=== PATIENT | male | born 1940 | race Caucasian/White ===

== ENCOUNTER 2016-07-24 10:21 | Observation (INO) | payer OTHER ==
[~2016-07-24] VITALS: Ht 185.4 cm; Wt 133.5 kg
--- NOTE | 2016-07-24 12:33 | ED ORDER SUMMARY ---
..... Patient: GUDELIA CHAN OrderSheet [facility] VisitID: [id number] [address] [place] [address] 75y, M Registration Date/Time: 07/24/2016 ORDER SHEET Weight: 128.3 kg Allergies: Aspirin GENERAL ORDERS: US Venous Bilat Urgent (10:50 07/24/2016 Karma Holder) (Ack 10:57 Merrill) (11:29 GMarshall R.N.) CBC w Diff Urgent (10:51 07/24/2016 Karma Holder) (Ack 10:57 Merrill) (11:29 GMarshall R.N.) CMP Urgent (10:51 07/24/2016 Karma Holder) (Ack 10:57 Merrill) (11:29 GMarshall R.N.) PT with INR Urgent (10:51 07/24/2016 Karma Holder) (Ack 10:57 Merrill) (11:29 GMarshall R.N.) Pulse oximeter (10:51 07/24/2016 Karma Holder) (11:29 GMarshall R.N.) MEDICATION ORDERS: Lovenox Subcut 120 mg (HIGH ALERT MEDICATION, NOW) (12:54 07/24/2016 Karma Holder) (12:56 GMarshall R.N.) IV FLUIDS: IV Saline Lock (10:51 07/24/2016 Karma Holder) (Ack 11:06 GMarshall R.N.) (11:30 GMarshall R.N.) Morphine IV 4 mg (HIGH ALERT MEDICATION, NOW) (11:40 07/24/2016 Karma Holder) (11:59 GMarshall R.N.) (Cancelled: Patient [id number] GMarshall R.N.) ORDER SHEET NOTES: [Electronically signed by Michael Joshua R.N. (13:45 07/24/2016)] [Electronically signed by Catracho Puentes Dr. (15:36 07/24/2016)] [Electronically locked/signed by Michael Joshua R.N. (13:45 07/24/2016)]
--- NOTE | 2016-07-24 12:33 | ED NURSING NOTES ---
Clinical Report - Nurses [place] [facility] [address] [place] [address] 07/24/2016 10:21 Patient: GUDELIA CHAN TRIAGE Triage time 10:35. Acuity: LEVEL 3. Chief Complaint: LEFT LOWER EXTREMITY SWELLING and REDNESS. Location of symptoms- (Hx of DVT). Alert. No acute distress. --10:45 Michael Joshua R.N. 10:35 07/24/16. BP: 107/86. HR: 81. RR: 20. O2 saturation: 98%. Temp: 98.5 F. Pain level now 07/22. --10:45 Michael Joshua R.N. Weight: 128.3 kg. Height/Length: 73 inches. BMI: 37.3. --10:45 Michael Joshua R.N. Medications Enalapril Maleate Oral. --10:40 Michael Joshua R.N. Etodolac Oral. Hydrochlorothiazide Oral. MetFORMIN HCl Oral. --10:40 Michael Joshua R.N. Atorvastatin Calcium Oral. Ranitidine HCl Oral. --10:41 Michael Joshua R.N. Alrex Ophthalmic. Combigan Ophthalmic. --10:41 Michael Joshua R.N. Allergies Aspirin. --10:40 Michael Joshua R.N. History Arrived by private vehicle. Historian: patient. Accompanied by family. No injury occurred. This occurred (A few days ago). He has had swelling and redness. Treatment TELESALES REPRESENTATIVE: None. NUTRITIONAL RISK ASSESSMENT: The nutritional risk assessment revealed no deficiencies. FUNCTIONAL ASSESSMENT: Functional assessment: no impairments noted. LEARNING NEEDS ASSESSMENT: The learning needs assessment revealed no barriers. SKIN INTEGRITY ASSESSMENT: Skin integrity risk assessment completed. No skin integrity risk identified. --10:45 Michael Joshua R.N. PROBLEMS: Myofascial Strain. Abnormal Test. Pedal Edema. DVT - Deep Venous Thrombosis. --10:44 Michael Joshua R.N. Interventions ID band on patient. --10:45 Michael Joshua R.N. PHYSICAL ASSESSMENT GENERAL / NEURO / PSYCH: Oriented X 4. Alert. Appears in no acute distress. SKIN: Skin intact. Skin is warm and dry. --10:46 Michael Joshua R.N. NURSING PROGRESS NOTES Patient gowned. Call light placed in reach. Bed placed in lowest position. --10:46 Michael Joshua R.N. 11:25 07/24/2016 Site #1 started via IV in the right forearm with an 20g angiocath, with aseptic technique and good blood return; one attempt. Blood drawn: rainbow set. Labeled in the presence of the patient and sent to the lab. Saline lock flushed with 10 mL saline. --11:30 Michael Joshua R.N. 11:59 07/24/2016 Morphine IVP 4 mg given over 1 minute(s) via site #1. --11:59 Michael Joshua R.N. 12:56 07/24/2016 Lovenox (Enoxaparin Sodium) Subcutaneous 120 mg given. Given in the right upper arm. --12:56 Michael Joshua R.N. 12:00. ( Welfare check on patient. No needs at this time). --13:29 Michael Joshua R.N. 12:00. ( Patient refused pain medicine that was ordered, states is not having any pain at this time). --13:32 iMchael Joshua R.N. 13:00. ( Dr Mendenhall at bedside). --13:33 Michael Joshua R.N. 13:34 07/24/16. BP: 120/73. HR: 74. RR: 20. O2 saturation: 97%. Temp: 98.5 F. Pain level now 0/10. --13:34 Michael Joshua R.N. DISPOSITION / DISCHARGE Admitted. Transported via stretcher. Patient's personal items include, Walker. --13:44 Michael Joshua R.N. 13:43 07/24/16. BP: 120/73. HR: 73. RR: 20. O2 saturation: 97%. Temp: 97.5 F. Pain level now 0/10. --13:44 Michael Joshua R.N. ( Report to Didi). --13:44 Michael Joshua R.N. Locked/Released at 07/24/2016 13:45 by Michael Joshua R.N.
--- NOTE | 2016-07-24 12:33 | ED ORDER SUMMARY ---
..... Patient: GUDELIA CHAN OrderSheet [facility] VisitID: [id number] [address] [place] [address] 75y, M Registration Date/Time: 07/24/2016 ORDER SHEET Weight: 128.3 kg Allergies: Aspirin GENERAL ORDERS: US Venous Bilat Urgent (10:50 07/24/2016 Karma Holder) (Ack 10:57 Merrill) (11:29 GMarshall R.N.) CBC w Diff Urgent (10:51 07/24/2016 Karma Holder) (Ack 10:57 Merrill) (11:29 GMarshall R.N.) CMP Urgent (10:51 07/24/2016 Karma Holder) (Ack 10:57 Merrill) (11:29 GMarshall R.N.) PT with INR Urgent (10:51 07/24/2016 Karma Holder) (Ack 10:57 Merrill) (11:29 GMarshall R.N.) Pulse oximeter (10:51 07/24/2016 Karma Holder) (11:29 GMarshall R.N.) MEDICATION ORDERS: Lovenox Subcut 120 mg (HIGH ALERT MEDICATION, NOW) (12:54 07/24/2016 Karma Holder) (12:56 GMarshall R.N.) IV FLUIDS: IV Saline Lock (10:51 07/24/2016 Karma Holder) (Ack 11:06 GMarshall R.N.) (11:30 GMarshall R.N.) Morphine IV 4 mg (HIGH ALERT MEDICATION, NOW) (11:40 07/24/2016 Karma Holder) (11:59 GMarshall R.N.) (Cancelled: Patient [id number] GMarshall R.N.) ORDER SHEET NOTES: [Electronically signed by Michael Joshua R.N. (13:45 07/24/2016)] [Electronically signed by Catracho Puentes Dr. (15:36 07/24/2016)] [Electronically locked/signed by Michael Joshua R.N. (13:45 07/24/2016)]
--- NOTE | 2016-07-24 12:33 | ED CLINICAL REPORT ---
Clinical Report - Physicians/Mid Levels [facility] [address] [place] [address] 07/24/2016 10:21 Patient: GUDELIA CHAN Arrived- By private vehicle. Historian- patient. HISTORY OF PRESENT ILLNESS Chief Complaint: LOWER EXTREMITY SWELLING. This started past several days and is still present and worsening. It was gradual in onset and has been constant but is not gone now. Severity is described as being moderate. The quality is noted to be similar to prior episodes. No radiation. Modifying factors- worsened by movement. Symptoms located in the area of the left thigh, left knee, left leg, left foot and left ankle. The patient has had swelling, but not had redness. No bladder dysfunction, bowel dysfunction, sensory loss or motor loss. 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 Reports that he was recently taken off of his warfarin. called to his primary care doctor's office and was poking to the covering physician. Recommended to come to the emergency department for evaluation.). Patient denies an injury. Similar symptoms previously: Once. Recent medical care: Not recently seen/assessed. REVIEW OF SYSTEMS No cough, chest pain, difficulty breathing, fever or skin rash. All systems otherwise negative, except as recorded above. PAST HISTORY See nurses notes. DVT. Medications: Alrex Ophthalmic. Combigan Ophthalmic. Atorvastatin Calcium Oral. Ranitidine HCl Oral. Etodolac Oral. Hydrochlorothiazide Oral. MetFORMIN HCl Oral. Enalapril Maleate Oral. Allergies: Aspirin. SOCIAL HISTORY Never smoker. No alcohol use or drug use. No recent travel. Is a local resident. ADDITIONAL NOTES The nursing notes have been reviewed. PHYSICAL EXAM Vital Signs: 07/24/2016 10:35 BP: 107/86. HR: 81. RR: 20. O2 saturation: 98%. Temp: 98.5 F. Blood pressure normal. Oxygen saturation normal. Appearance: Alert. Oriented X3. No acute distress. Eyes: Pupils equal, round and reactive to light. Eyes normal inspection. ENT: Ears normal. Nose normal. Pharynx normal. Neck: Normal inspection. Neck supple. CVS: Normal heart rate and rhythm. Heart sounds normal. Respiratory: No respiratory distress. Breath sounds normal. Abdomen: Soft and nontender. No organomegaly. Skin: Skin intact. Skin warm and dry. Normal skin color. Normal skin turgor. Extremities: Lower extremities exhibit normal ROM. Moderate pitting edema of the left lower extremity involving the foot, ankle, lower leg and thigh. LABS, X-RAYS, AND EKG Lower Extremity Sonography: DVT left lower extremity. The exam was performed by a aviation electronics technician. The study was independently viewed by me and interpreted by the radiologist. The study was discussed with the radiologist (via PACS). Laboratory Tests: CBC w Diff: (MARISEL: 07/24/2016 11:25) ( MsgRcvd 07/24/2016 11:34) Final results Test Result Flag Units (Reference) WHITE BLOOD COUNT 9.9 K/uL (4.5-11.5) RED BLOOD COUNT 3.85 L M/uL (4.50-5.90) HEMOGLOBIN 12.3 L gm/dL (13.5-17.5) HEMATOCRIT 37.1 L % (41.0-53.0) MEAN CELL VOLUME 96 fL (80-100) MEAN CORPUSCULAR HGB 32 pg (26-34) MEAN CORPUSCULAR HGB CONC 33 g/dL (31-37) RED CELL DISTRIBUTION WIDTH 13.2 % (11.6-14.8) PLATELET COUNT 183 K/uL (150-400) NEUTROPHIL % 74.0 % (50-75) LYMPH % 14.6 L % (25-40) MONO % 9.6 % (3-14) EOSINOPHIL % 1.8 % (0-4) BASOPHIL % 0 % (0-2) . PROGRESS AND PROCEDURES Course of Care: the patient is a pleasant 75 her old male with history of DVT presented for evaluation of left lower extremity pain. The patient is having swelling to the area. Concern for DVT at this time. Patient is recently taken off of warfarin. Head discussion with patient in regards to why this was potentially done. Also I discussion with patient about being placed back on anticoagulation. Patient is agreeable to this if he does have a DVT. Do not fill patient has Moman embolism. No shortness of breath or chest pain. No evidence of sinusitis or infectious etiology for the swelling. Ultrasound will be ordered including blood work. Patient is agreeable to treatment plan. Workup shows patient to have DVT in the left lower extremity. Patient will be placed on Lovenox. I discussion with the who is covering for the patient's primary care Dr. Patient will be admitted to the hospitalists here in the emergency department. Discussed case with hospitalist. No further recommendations. Patient will be admitted. Prior to patient's apart from the emergency department she is noted to be resting in bed and in no acute distress. Pain is a 0 out of 10 in severity. Patient had declined offers of pain medication while here in the emergency department. I discussed with patient workup, diagnosis, and plan of care. All questions answered. Patient isent plan. Do not the patient is admitted to the intensive care unit at this time. Patient is a poor outpatient candidate Based on age and risk factors. Critical care performed (40 minutes). Time is exclusive of separately billable procedures. Time includes: direct patient care, patient reassessment, coordination of patient care, interpretation of data (laboratory data), review of patient's medical records, medical consultation, family consultation regarding treatment decisions and documentation of patient care. Disposition: Admitted to Acute Care. CLINICAL IMPRESSION acute left lower extremity DVT. (Electronically signed by Catracho Puentes Dr. 07/24/2016 15:36)
--- NOTE | 2016-07-24 12:33 | ED NURSING NOTES ---
Clinical Report - Nurses [place] [address] [place] [address] 07/24/2016 10:21 Patient: GUDELIA CHAN TRIAGE Triage time 10:35. Acuity: LEVEL 3. Chief Complaint: LEFT LOWER EXTREMITY SWELLING and REDNESS. Location of symptoms- (Hx of DVT). Alert. No acute distress. --10:45 Michael Joshua R.N. 10:35 07/24/16. BP: 107/86. HR: 81. RR: 20. O2 saturation: 98%. Temp: 98.5 F. Pain level now 07/22. --10:45 Michael Joshua R.N. Weight: 128.3 kg. Height/Length: 73 inches. BMI: 37.3. --10:45 Michael Joshua R.N. Medications Enalapril Maleate Oral. --10:40 Michael Joshua R.N. Etodolac Oral. Hydrochlorothiazide Oral. MetFORMIN HCl Oral. --10:40 Michael Joshua R.N. Atorvastatin Calcium Oral. Ranitidine HCl Oral. --10:41 Michael Joshua R.N. Alrex Ophthalmic. Combigan Ophthalmic. --10:41 Michael Joshua R.N. Allergies Aspirin. --10:40 Michael Joshua R.N. History Arrived by private vehicle. Historian: patient. Accompanied by family. No injury occurred. This occurred (A few days ago). He has had swelling and redness. Treatment SENIOR CARE MANAGER: None. NUTRITIONAL RISK ASSESSMENT: The nutritional risk assessment revealed no deficiencies. FUNCTIONAL ASSESSMENT: Functional assessment: no impairments noted. LEARNING NEEDS ASSESSMENT: The learning needs assessment revealed no barriers. SKIN INTEGRITY ASSESSMENT: Skin integrity risk assessment completed. No skin integrity risk identified. --10:45 Michael Joshua R.N. PROBLEMS: Myofascial Strain. Abnormal Test. Pedal Edema. DVT - Deep Venous Thrombosis. --10:44 Michael Joshua R.N. Interventions ID band on patient. --10:45 Michael Joshua R.N. PHYSICAL ASSESSMENT GENERAL / NEURO / PSYCH: Oriented X 4. Alert. Appears in no acute distress. SKIN: Skin intact. Skin is warm and dry. --10:46 Michael Joshua R.N. NURSING PROGRESS NOTES Patient gowned. Call light placed in reach. Bed placed in lowest position. --10:46 Michael Joshua R.N. 11:25 07/24/2016 Site #1 started via IV in the right forearm with an 20g angiocath, with aseptic technique and good blood return; one attempt. Blood drawn: rainbow set. Labeled in the presence of the patient and sent to the lab. Saline lock flushed with 10 mL saline. --11:30 Michael Joshua R.N. 11:59 07/24/2016 Morphine IVP 4 mg given over 1 minute(s) via site #1. --11:59 Michael Joshua R.N. 12:56 07/24/2016 Lovenox (Enoxaparin Sodium) Subcutaneous 120 mg given. Given in the right upper arm. --12:56 Michael Joshua R.N. 12:00. ( Welfare check on patient. No needs at this time). --13:29 Michael Joshua R.N. 12:00. ( Patient refused pain medicine that was ordered, states is not having any pain at this time). --13:32 Michael Joshua R.N. 13:00. ( Dr Mendenhall at bedside). --13:33 Michael Joshua R.N. 13:34 07/24/16. BP: 120/73. HR: 74. RR: 20. O2 saturation: 97%. Temp: 98.5 F. Pain level now 0/10. --13:34 Michael Joshua R.N. DISPOSITION / DISCHARGE Admitted. Transported via stretcher. Patient's personal items include, Walker. --13:44 Michael Joshua R.N. 13:43 07/24/16. BP: 120/73. HR: 73. RR: 20. O2 saturation: 97%. Temp: 97.5 F. Pain level now 0/10. --13:44 Michael Joshua R.N. ( Report to Didi). --13:44 Michael Joshua R.N. Locked/Released at 07/24/2016 13:45 by Michael Joshua R.N.
--- NOTE | 2016-07-24 13:29 | DIAGNOSTIC IMAGING REPORT ---
PROCEDURE: US VENOUS - BILATERAL EXT INDICATION: Bilateral leg swelling, left greater than right. History of right knee vein thrombosis. Recently discontinued,) 3 weeks ago). TECHNIQUE: Color Doppler duplex imaging of the deep and superficial venous system without and with compression. COMPARISON: Compared to venous ultrasound of the right lower extremity on 11/14/2014. FINDINGS: RIGHT LOWER EXTREMITY: Deep and superficial venous system of the right lower extremity normal, and there no evidence of deep vein thrombosis or superficial thrombophlebitis. LEFT LOWER EXTREMITY: There is acute occlusive deep vein thrombosis extending from the left common femoral vein through the superficial femoral vein. The left popliteal vein is obscured by a large 7 cm popliteal cyst and may be compressed. Left calf veins are not identified (body habitus). IMPRESSION: 1. There is acute occlusive deep vein thrombosis extending from the left common femoral vein through the superficial femoral vein. 2. The left popliteal vein is not identified and may be compressed by large 7 cm popliteal cyst. 3. Negative venous ultrasound of the right lower extremity.
[2016-07-24 13:56] VITALS: BP 116/64
--- NOTE | 2016-07-24 15:36 | ED MED RECONCILIATION SUMMARY ---
Patient: GUDELIA CHAN Medication Reconciliation Report [facility] VisitID: [id number] [address] [place] [address] 75y, M Registration Date/Time: 07/24/2016 Weight: 128.3 kg Height/Length: 73 in. BMI: 37.3 ALLERGIES: Aspirin The patient's Home Medications are listed below: THE FOLLOWING MEDICATIONS NEED TO BE RECONCILED: Alrex Ophthalmic Atorvastatin Calcium Oral Combigan Ophthalmic Enalapril Maleate Oral Etodolac Oral Hydrochlorothiazide Oral MetFORMIN HCl Oral Ranitidine HCl Oral The source(s) of the original Home Medication information: Not obtained. The following Medications were given to the patient in the Emergency Department: Morphine [IVP] IVP 4 mg, administered: 07/24/2016 11:59:00 AM Lovenox [Subcutaneous] Subcutaneous 120 mg, administered: 07/24/2016 12:56:00 PM The following Medications were prescribed to the patient: None.
--- NOTE | 2016-07-24 15:36 | ED DISCHARGE INSTRUCTIONS ---
Patient: GUDELIA CHAN General Instructions [facility] VisitID: [id number] [address] [place] [address] 75y, M Registration Date/Time: 07/24/2016 acute left lower extremity DVT. (Electronically signed by Catracho Puentes Dr. 07/24/2016 15:36)
--- NOTE | 2016-07-24 15:36 | ED MED RECONCILIATION SUMMARY ---
Patient: GUDELIA CHAN Medication Reconciliation Report [facility] VisitID: [id number] [address] [place] [address] 75y, M Registration Date/Time: 07/24/2016 Weight: 128.3 kg Height/Length: 73 in. BMI: 37.3 ALLERGIES: Aspirin The patient's Home Medications are listed below: THE FOLLOWING MEDICATIONS NEED TO BE RECONCILED: Alrex Ophthalmic Atorvastatin Calcium Oral Combigan Ophthalmic Enalapril Maleate Oral Etodolac Oral Hydrochlorothiazide Oral MetFORMIN HCl Oral Ranitidine HCl Oral The source(s) of the original Home Medication information: Not obtained. The following Medications were given to the patient in the Emergency Department: Morphine [IVP] IVP 4 mg, administered: 07/24/2016 11:59:00 AM Lovenox [Subcutaneous] Subcutaneous 120 mg, administered: 07/24/2016 12:56:00 PM The following Medications were prescribed to the patient: None.
--- NOTE | 2016-07-24 15:36 | ED DISCHARGE INSTRUCTIONS ---
Patient: GUDELIA CHAN General Instructions [facility] VisitID: [id number] [address] [place] [address] 75y, M Registration Date/Time: 07/24/2016 acute left lower extremity DVT. (Electronically signed by Catracho Puentes Dr. 07/24/2016 15:36)
--- NOTE | 2016-07-24 15:36 | ED MAR SUMMARY ---
..... Medication Administration Record [facility] [address] [place] [address] Patient: GUDELIA CHAN Visit ID: [id number] 75y, M Weight: 128.3 kg Height/Length: 73 in BMI: 37.3 ALLERGIES: Aspirin Given 11:59 07/24/2016 Michael Joshua R.N. Medication Administered: MORPHINE [IVP], Dose: 4 mg IVP over 1 minute(s), Site: #1 right forearm. Medication Ordered: Morphine IV 4 mg (HIGH ALERT MEDICATION, NOW). Given 12:56 07/24/2016 Michael Joshua RLucian Medication Administered: LOVENOX [SUBCUTANEOUS] (ENOXAPARIN SODIUM), Dose: 120 mg Subcutaneous. Medication Ordered: Lovenox Subcut 120 mg (HIGH ALERT MEDICATION, NOW).
--- NOTE | 2016-07-24 15:36 | ED MAR SUMMARY ---
..... Medication Administration Record [facility] [address] [place] [address] Patient: GUDELIA CHAN Visit ID: [id number] 75y, M Weight: 128.3 kg Height/Length: 73 in BMI: 37.3 ALLERGIES: Aspirin Given 11:59 07/24/2016 Michael Joshua R.N. Medication Administered: MORPHINE [IVP], Dose: 4 mg IVP over 1 minute(s), Site: #1 right forearm. Medication Ordered: Morphine IV 4 mg (HIGH ALERT MEDICATION, NOW). Given 12:56 07/24/2016 Michael Joshua RLucian Medication Administered: LOVENOX [SUBCUTANEOUS] (ENOXAPARIN SODIUM), Dose: 120 mg Subcutaneous. Medication Ordered: Lovenox Subcut 120 mg (HIGH ALERT MEDICATION, NOW).
[2016-07-24] MEDS ORDERED: HYDROCHLOROTHIA25 MG PO (16:47)
[2016-07-24] MEDS ORDERED: ENALAPRIL MALEA20 MG PO (16:48)
[2016-07-24] MEDS ORDERED: ETODOLAC ER400 MG PO (16:49)
[2016-07-24] MEDS ORDERED: METFORMIN HCL500 MG PO (16:50)
[2016-07-24] MEDS ORDERED: ATORVASTATIN CA10 MG PO (16:50)
[2016-07-24] MEDS ORDERED: ACID REDUCER150 MG PO (16:51)
[2016-07-24] MEDS ORDERED: COMBIGAN0.2 MG/0.5 OP (17:07)
[2016-07-24] MEDS ORDERED: ALREX0.2 % OP (17:07)
--- NOTE | 2016-07-24 17:51 | History & Physical Report ---
Admission Admit Date 07/24/16 Information Source Information Source: Self Reliability: Good History Chief Complaint left leg swelling History of Present Illness Patient is a 75 year old male with a pmh of dvt, hypertension, diabetes, and recent corneal transplant that is presenting with a one day history of left leg swelling. Patient has had a dvt before over 10 years ago and was placed on warfarin ever since. Patient continued the warfarin without incidence for the past 10 years. Patients pmd took the patient off of warfarin for a reason that was unclear to the patient. A few days after stopping the medication the patient developed left leg swelling that was painful. Patient additionally noticed some generalized eyrthema in the same area but that has since resolved. Patient is currently stable and will be admitted. Patient History 1. Left leg DVT 2. Hypertension 3. Diabetes mellitus 4. 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 He lives at home with his . Patient does not smoke, drink or use illicit substances. Family History Family history was reviewed; no changes noted. Advance Directive Durable POA-Healthcare Medications and Allergies Medications Home Medications Alrex opthalmic Combigen opthalmic Enalapril Maleate 20 mg daily Etodolac Hydrochlorthiazide HCl Ranitidine Current Medications Sig/Sonia Start time Last Medication Dose Route Stop Time Status Admin Enoxaparin Sodium 150 MG BID 07/24 2100 UNV SC Famotidine 20 MG Q12HR 07/24 2100 AC PO Insulin Human Lispro See Dose ACHS 07/24 2100 AC Insts (1) SC Non-Formulary 1 DROP QHS 07/24 2100 NF Medication IO Non-Formulary 1 DROP QHS 07/24 2100 NF Medication IO Acetaminophen 650 MG Q6H PRN 07/24 1515 AC PO Morphine Sulfate See Dose Q6H PRN 07/24 1300 AC Insts (2) IV Ondansetron HCl 4 MG Q8H PRN 07/24 1300 AC IV Dose Instructions: (1)Insulin Human Lispro: LOW DOSE: ACCUCHECK AND SLIDING SCALE >>To change sliding scale DISCONTINUE this order and enter a NEW order. Thanks< (2)Morphine Sulfate: 2 - 4 MG Allergies Coded Allergies: Aspirin (07/24/16) Uncoded Allergies: CRAB (07/24/16) Review of Systems Constitutional Denies: Fever, Chills, Sweats, Weakness, Malaise, Other. Eyes Denies: Pain, Vision Change, Conjunctival Inflammation, Eyelid Inflammation, Redness, Other. ENT Denies: Ear Pain, Ear Discharge, Nose Pain, Nasal Discharge, Nasal Congestion, Mouth Pain, Mouth Swelling, Throat Pain, Throat Swelling, Other. Respiratory Denies: Cough, Dry, SOB w/exertion, Wheezing, Hemoptysis, Pleuritic Pain, Sputum , Other. Cardiovascular Denies: Chest Pain, Palpitations, Orthopnea, PND, Edema, Light-headedness, Other. Gastrointestinal Denies: Nausea, Vomiting, Abdominal Pain, Diarrhea, Constipation, Melena, Hematochezia, Other. Genitourinary Denies: Dysuria, Frequency, Incontinence, Hematuria, Retention, Other. Musculoskeletal Leg Pain, Other (left leg swelling ). Denies: Neck Pain, Shoulder Pain, Arm Pain, Back Pain, Hand Pain, Foot Pain. Skin Denies: Rash, Lesions, Jaundice, Bruising, Other. Physical Exam Vital Signs / I&Os Vital Signs Date Time Temp Pulse Resp B/P Pulse O2 O2 Flow FiO2 Ox Delivery Rate 07/24 1356 97.9 69 22 116/64 97 Room Air General Appearance Alert, Oriented X3, No acute distress HEENT Normal exam, Atraumatic, Moist mucous membranes Lungs Clear to auscultation, Normal air movement Cardiovascular Regular rate and rhythm, Normal S1 and S2, No murmurs, gallops, rubs Abdomen Soft, No tenderness, No guarding, No rebound, No masses, No hepatosplenomegaly Extremities No cyanosis, No clubbing, Normal pulses, No tenderness, - generalized uniform swelling of the left leg Skin No Rashes Neurological - pt claims to be unable to stand due to balance issues - pt requires the help of walker at all times LAB Results Laboratory Tests 07/24 1125 Chemistry Plasma Sodium (136 - 145 mmol/L) 140 Plasma Potassium (3.5 - 5.1 mmol/L) 4.3 Plasma Chloride (98 - 107 mmol/L) 105 CO2 (Enzymatic) (21 - 32 mmol/L) 27 BUN (7 - 18 mg/dL) 30 Creatinine (0.6 - 1.3 mg/dL) 0.8 Est GFR ( Amer) (mL/min) >60 Est GFR (Non-Af Amer) (mL/min) >60 Glucose (70 - 110 mg/dL) 110 Plasma Calcium (8.5 - 10.1 mg/dL) 9.0 Total Bilirubin (0.0 - 1.0 mg/dL) 0.6 AST (15 - 37 U/L) 17 ALT (12 - 78 U/L) 27 Alkaline Phosphatase (46 - 116 U/L) 76 Total Protein (6.4 - 8.2 g/dL) 6.8 Albumin (3.3 - 5.0 g/dL) 3.2 Coagulation INR (0.8 - 1.2) 1.0 Hematology WBC (4.5 - 11.5 K/uL) 9.9 RBC (4.50 - 5.90 M/uL) 3.85 Hgb (13.5 - 17.5 gm/dL) 12.3 Hct (41.0 - 53.0 %) 37.1 MCV (80 - 100 fL) 96 MCH (26 - 34 pg) 32 RDW (11.6 - 14.8 %) 13.2 Neut % (Auto) (50 - 75 %) 74.0 Lymph % (Auto) (25 - 40 %) 14.6 [place] % (Auto) (3 - 14 %) 9.6 Eos % (Auto) (0 - 4 %) 1.8 Baso % (Auto) (0 - 2 %) 0 Plt Count, EDTA (150 - 400 K/uL) 183 PUBS MCHC (31 - 37 g/dL) 33 Assessment and Plan Problem List 1. Left leg DVT Plan - pt has a dvt after stopping warfarin - us evidence of dvt - will start lovenox 150 mg bid - will monitor on telemetry 2. Hypertension Plan pt has an established history of hypertension - will resume hctz and enalapril at home doses 3. Diabetes mellitus Plan - pt has an established history of diabetes - will start on carb consistent diet - will start sliding scale insulin 4. Post corneal transplant Plan - no pathology noted - will c/w alrex opthalmic and combigen opthalmic drops 5. Osteoarthritis Plan - pt takes etodolac - will substitute with ketorolac while in pt
[2016-07-24 19:03] VITALS: BP 96/65
[2016-07-24 23:00] VITALS: BP 100/62
[2016-07-25 02:40] VITALS: BP 102/69
[2016-07-25 07:07] VITALS: BP 99/65
--- NOTE | 2016-07-25 07:38 | Discharge Summary ---
Discharge Summary Report Admit Date 07/24/16 Discharge Date 07/25/16 Admission Diagnosis L leg swelling DVT DM HTN Discharge Diagnosis same Brief History L leg swelling and hx of DVT in right leg in the past. Hospital Course Admitted with lovenox and then change to xarelto. Given home meds. General Appearance Alert, Cooperative HEENT Atraumatic Lungs Clear to auscultation, Normal air movement Cardiovascular Regular Rate, No murmurs Abdomen Soft, No tenderness Neurological L mid calf that is tender, mildly red and swollen. Lab/Imaging Laboratory Tests 07/25 07/24 0530 1125 Chemistry Plasma Sodium (136 - 145 mmol/L) 141 140 Plasma Potassium (3.5 - 5.1 mmol/L) 3.8 4.3 Plasma Chloride (98 - 107 mmol/L) 106 105 CO2 (Enzymatic) (21 - 32 mmol/L) 27 27 BUN (7 - 18 mg/dL) 32 30 Creatinine (0.6 - 1.3 mg/dL) 0.8 0.8 Est GFR ( Amer) (mL/min) >60 >60 Est GFR (Non-Af Amer) (mL/min) >60 >60 Glucose (70 - 110 mg/dL) 105 110 Plasma Calcium (8.5 - 10.1 mg/dL) 8.5 9.0 Plasma Magnesium (1.8 - 2.4 mg/dL) 1.9 Total Bilirubin (0.0 - 1.0 mg/dL) 0.6 AST (15 - 37 U/L) 17 ALT (12 - 78 U/L) 27 Alkaline Phosphatase (46 - 116 U/L) 76 Total Protein (6.4 - 8.2 g/dL) 6.8 Albumin (3.3 - 5.0 g/dL) 3.2 Coagulation INR (0.8 - 1.2) 2.0 1.0 Hematology WBC (4.5 - 11.5 K/uL) 8.5 9.9 RBC (4.50 - 5.90 M/uL) 3.54 3.85 Hgb (13.5 - 17.5 gm/dL) 11.5 12.3 Hct (41.0 - 53.0 %) 34.0 37.1 MCV (80 - 100 fL) 96 96 MCH (26 - 34 pg) 33 32 RDW (11.6 - 14.8 %) 13.5 13.2 Neut % (Auto) (50 - 75 %) 57.7 74.0 Lymph % (Auto) (25 - 40 %) 26.5 14.6 [place] % (Auto) (3 - 14 %) 11.0 9.6 Eos % (Auto) (0 - 4 %) 4.4 1.8 Baso % (Auto) (0 - 2 %) 0.4 0 Plt Count, EDTA (150 - 400 K/uL) 161 183 PUBS MCHC (31 - 37 g/dL) 34 33 Discharge Instructions/Meds d/c home today, f/u in 2-3days at clinic, no more NSAIDS. will have him take xarelto until therapeutic on coumadin.
[2016-07-25] MEDS ORDERED: XARELTO10 MG PO (07:42)
[2016-07-25] MEDS ORDERED: COUMADIN5 MG PO (07:43)
--- NOTE | 2016-07-25 07:45 | Provider's Discharge Care Plan ---
Problem, Goal, Plan Problem List 1. Left leg DVT Instructions: Follow up as directed, Take meds as directed
--- NOTE | 2016-07-25 07:45 | Provider's Discharge Care Plan ---
Problem, Goal, Plan Problem List 1. Left leg DVT Instructions: Follow up as directed, Take meds as directed
== END 2016-07-25 10:15 | disposition home or self-care (01) ==
LOC: ED SRH 10:21 → TRANS SRH 13:06 → ACUTE2 SRH 13:55
PROVIDERS: ADMIT Student in an Organized Health Care Education/Training Program
DX: I82.412 Acute embolism and thrombosis of left femoral vein (principal); E11.9 Type 2 diabetes mellitus without complications; Z79.84 Long term (current) use of oral hypoglycemic drugs; I10 Essential (primary) hypertension; Z86.718 Personal history of other venous thrombosis and embolism
CPT/HCPCS: 29230; 29247; 83457; 90047; 90074; 90098; 90100; 92720; 94060; 95059

== ENCOUNTER 2016-08-01 11:14 | Outpatient (CLI) | payer OTHER ==
[~2016-08-01 11:14] MED LIST: ACID REDUCER150 MG PO; ALREX0.2 % OP; ATORVASTATIN CA10 MG PO; COMBIGAN0.2 MG/0.5 OP; COUMADIN5 MG PO; ENALAPRIL MALEA20 MG PO; ETODOLAC ER400 MG PO; HYDROCHLOROTHIA25 MG PO; METFORMIN HCL500 MG PO; XARELTO10 MG PO
== END 2016-08-01 23:00 ==
LOC: LAB SRH 11:14
DX: Z51.81 Encounter for therapeutic drug level monitoring (principal); Z79.01 Long term (current) use of anticoagulants; Z86.718 Personal history of other venous thrombosis and embolism
CPT/HCPCS: 90074; 94060

== ENCOUNTER 2016-08-30 10:31 | Emergency (ER) | payer OTHER ==
--- NOTE | 2016-08-30 12:27 | DIAGNOSTIC IMAGING REPORT ---
PROCEDURE: CT HEAD WITHOUT CONTRAST INDICATION: TRAUMA/INJURY TECHNIQUE: Axial CT images were acquired through the head. Coronal and sagittal reformations were created. COMPARISON: None. FINDINGS: Age appropriate, mild cerebral cortical atrophy. Minimal hypodensity in the periventricular and subcortical white matter. Minor patchy ill-defined hypodensity in the left frontal periventricular white matter No intracranial hemorrhage or extraaxial fluid collections. Ventricles are normal in size, shape and position. There is no mass, mass effect or midline shift. The constantino-white matter differentiation is normal. There is no edema. Mild calcific atherosclerosis of the intracranial internal carotid arteries. The calvarium is intact. Mild hyperostosis frontalis interna. There is near complete occlusion of the left sphenoid sinus and moderate mucosal thickening of both sphenoid sinus outflow tracts. Moderate ethmoid mucosal thickening. The paranasal sinuses and mastoid air cells are otherwise normally aerated. The extracranial soft tissues and orbits are normal. IMPRESSION: 1. No CT evidence of acute intracranial process. 2. Mild age related involutional and white matter changes. 3. Left sphenoid sinus disease. 4. Findings discussed with Dr. Ewing at 12:[address] scans at this facility use dose modulation, iterative reconstruction, and/or weight-based dosing when appropriate to reduce radiation dose to as low as reasonably achievable.
--- NOTE | 2016-08-30 12:28 | DIAGNOSTIC IMAGING REPORT ---
PROCEDURE: XR CHEST 2 VIEW INDICATION: FALL WITH HEAD INJURY, ABNORMAL ECG TECHNIQUE: PA and lateral views. COMPARISON: None. FINDINGS: Lungs are clear. Heart and mediastinum are normal. Thorax is normal. IMPRESSION: 1. Negative chest.
--- NOTE | 2016-08-30 13:08 | ED ORDER SUMMARY ---
..... Patient: GUDELIA CHAN OrderSheet [facility] VisitID: [id number] [place] [address] 75y, M Registration Date/Time: 08/30/2016 ORDER SHEET Weight: 128.3 kg (stated) Allergies: Aspirin GENERAL ORDERS: Linseed Oil Order Filler (Continuous) (10:48 08/30/2016 JBoardley R.N. per protocol) (10:48 JBoardley R.N.) PT with INR Urgent (10:48 08/30/2016 JBoardley R.N. per protocol) (Ack 10:49 KHoerner) (11:15 JBoardley R.N.) Pulse oximeter (10:48 08/30/2016 JBoardley R.N. per protocol) (10:48 JBoardley R.N.) PTT Urgent (10:49 08/30/2016 JBoardley R.N. per protocol) (Ack 10:50 KHoerner) (11:15 JBoardley R.N.) EKG - ER Stat (10:49 08/30/2016 JBoardley R.N. per protocol) (10:50 LNations ER Tech1) (Ack 10:50 KHoerner) (10:55 JBoardley R.N.) Vitals (10:49 08/30/2016 JBoardley R.N. per protocol) (10:49 JBoardley R.N.) Chest 2V Urgent (11:02 08/30/2016 PHutchinson DO) (Ack 11:04 KHoerner) (11:47 MWinterer R.N.) CT Head wo Cont Urgent (11:02 08/30/2016 PHutchinson DO) (Ack 11:04 KHoerner) (11:47 MWinterer R.N.) UA-Culture if indicated Urgent (11:03 08/30/2016 PHutchinson DO) (Ack 11:04 KHoerner) (12:01 JBoardley R.N.) BNP Urgent (11:03 08/30/2016 PHutchinson DO) (Ack 11:04 KHoerner) (11:15 JBoardley R.N.) D-Dimer Urgent (11:03 08/30/2016 [facility]) (Ack 11:04 KHoerner) (11:15 JBoardley R.N.) POC Glucose (11:12 08/30/2016 JBoardley R.N. per protocol) (11:12 JBoardley R.N.) Vitals - Orthostatic (12:08 08/30/2016 JBoardley R.N. per protocol) (12:08 JBoardley R.N.) Cardiac Panel Stat (12:36 08/30/2016 [facility]) (Ack 12:36 KHoerner) (13:03 JBoardley R.N.) CTA Thorax w Cont (No) (GFR > 60) Urgent (13:06 08/30/2016 [facility]) (Ack 13:08 KHoerner) (13:49 KHoerner) MEDICATION ORDERS: IV FLUIDS: IV Saline Lock (10:48 08/30/2016 JBoardley R.N. per protocol) (Ack 10:50 JBoardley R.N.) (11:15 JBoardley R.N.) IV NS : initial bolus 500 mL (1000 mL/hr), then 500 mL/hr for X2 (NOW) (11:01 08/30/2016 [facility]) (11:10 JBoardley R.N.) ORDER SHEET NOTES: [Electronically signed by Richard Perez R.N. (15:55 08/30/2016)] [Electronically signed by Krunal Ewing DO (16:25 08/30/2016)] [Electronically locked/signed by Richard Perez R.N. (15:55 08/30/2016)]
--- NOTE | 2016-08-30 13:08 | ED CLINICAL REPORT ---
Clinical Report - Physicians/Mid Levels [facility] [address] [place] [address] 08/30/2016 10:32 Patient: GUDELIA CHAN Time Seen: 10:54. Arrived- By ambulance. Historian- patient and EMS personnel. HISTORY OF PRESENT ILLNESS Chief Complaint: INJURY TO HEAD and FALL. Location of injuries- head. The injury occurred just prior to arrival. Occurred at a restaurant. Fell; tripped (Pt fell at restaurant. Pt "tripped over his feet" striking his head on a table. Pt is on coumadin). The patient complains of mild pain. The patient sustained a blow to the head. No neck pain, loss of consciousness or seizure. Not dazed. REVIEW OF SYSTEMS No numbness, hearing loss, nausea, chest pain or weakness. No vomiting, difficulty breathing, bladder dysfunction, laceration or fever. All systems otherwise negative, except as recorded above. PAST HISTORY Hypertension. Diabetes mellitus. PCP: Dr Patton / Jon. Deep venous thrombosis. Hyperlipidemia. Glaucoma. ( Pedal edema). Surgeries: Appendectomy. Hemorrhoidectomy. Hip surgery. Tonsillectomy. Medications: Warfarin Sodium Oral 5 mg, daily. Alrex Ophthalmic. Atorvastatin Calcium Oral 10 mg, daily. Combigan Ophthalmic. Enalapril Maleate Oral 20 mg, daily. Hydrochlorothiazide Oral 25 mg, daily. MetFORMIN HCl Oral (Tablet 500 mg), daily. Ranitidine HCl Oral 150 mg, daily. Allergies: Aspirin. SOCIAL HISTORY Never smoker. No alcohol use or drug use. ADDITIONAL NOTES The nursing notes have been reviewed. PHYSICAL EXAM Vital Signs: 08/30/2016 10:39 BP: 92/61. HR: 60. RR: 14. O2 saturation: 97%. Temp: 97.7 F. Pain level now: 06/21. Appearance: Alert. No acute distress. Head: No Echols's sign or raccoon eyes. Right quaker: moderate tenderness, mild swelling and small ecchymosis of the lower posterior aspect of the right quaker. No erythema, laceration, abrasion or deformity. Eyes: EOM intact. ENT: No dental injury. Pharynx normal. Neck: No pain with movement of head/neck. Painless ROM. Neck non-tender. No vertebral tenderness. CVS: Pulses normal. No JVD. Respiratory: Breath sounds normal. Chest nontender. Abdomen: Soft and nontender. Back: No tenderness. ROM normal. Skin: Skin intact. Skin warm and dry. Extremities: Pelvis stable. Extremities atraumatic. Bilateral moderate edema of the lower extremities. Neuro: [place] Coma Scale: 15- eyes open spontaneously (4); best verbal response- oriented x 3 (5); best motor response- obeys commands (6). Oriented X 3. Mood/affect normal. Speech normal. No motor deficit. No sensory deficit. LABS, X-RAYS, AND EKG EKG: EKG time: (10:55). Normal sinus rhythm. Rate: 60. Abnormal P waves. First-degree atrioventricular block. Decreased QRS voltage in the precordial leads. Normal axis. Prior EKG unavailable. The study has been interpreted contemporaneously by me. The EKG appears to be a good tracing. Chest X-ray: No acute disease. Normal lung markings present. Views: PA and lateral. Technique: good. The X-rays were interpreted contemporaneously by me. The X-rays were discussed with the radiologist (via PACS note). CT Head: No bony abnormalities, no hemorrhage, no intracranial mass, no midline shift and no hydrocephalus. There is sinus opacification involving the sphenoid sinuses (left). There is mild atrophy is present. Head CT performed without contrast. The study was independently viewed by me, interpreted by the radiologist and discussed with the radiologist. CTA Pulmonary Arteries: IMPRESSION: 1. Slightly limited study, but no evidence of large central pulmonary embolus. 2. Findings of mild pulmonary artery hypertension, correlate clinically. 3. Low lung volumes with mild interstitial thickening in the lower lobes bilaterally, possibly early interstitial edema given mild cardiomegaly. 4. Decreased caliber of the inferior vena cava suggestive of decreased overall fluid status. 5. Discussed with Dr. Ewing in the emergency room. The CTA was performed with contrast. The study was independently viewed by me, interpreted by the radiologist and discussed with the radiologist. Laboratory Tests: UA-Culture if indicated: (MARISEL: 08/30/2016 12:00) ( MsgRcvd 08/30/2016 12:15) Final results Test Result Flag Units (Reference) URINE COLOR YELLOW URINE APPEARANCE CLEAR URINE GLUCOSE NEGATIVE (NEGATIVE) URINE BILIRUBIN NEGATIVE (NEGATIVE) URINE KETONE NEGATIVE (NEGATIVE) URINE SPECIFIC GRAVITY 1.020 (1.010-1.030) URINE PH 6.0 (5.0-8.0) URINE PROTEIN NEGATIVE (NEGATIVE) URINE UROBILINOGEN 0.2 EU/dL (0.2-1.0) URINE NITRITE NEGATIVE (NEGATIVE) URINE BLOOD NEGATIVE (NEGATIVE) URINE LEUK ESTERASE NEGATIVE (NEGATIVE) URINE RBC NONE SEEN rbc/hpf (0-1) URINE WBC 0-1 wbc/hpf (0-1) URINE EPITHELIAL CELLS 0-1 EPI/hpf (0-5) URINE BACTERIA FEW (1+) (NONE SEEN) URINE COMMENT CULT NOT INDICATED URINE CULTURES ARE SET-UP BASED ON THE FOLLOWING CRITERIA:POSITIVE NITRITEPOSITIVE LEUKOCYTE ESTERASEGREATER THAN 10 WHITE BLOOD CELLSMODERATE (2+) OR GREATER BACTERIA CBC w Diff: (MARISEL: 08/30/2016 11:00) ( [facility] 08/30/2016 12:53) Final results Test Result Flag Units (Reference) WHITE BLOOD COUNT 10.4 K/uL (4.5-11.5) RED BLOOD COUNT 4.04 L M/uL (4.50-5.90) HEMOGLOBIN 13.1 L gm/dL (13.5-17.5) HEMATOCRIT 38.4 L % (41.0-53.0) MEAN CELL VOLUME 95 fL (80-100) MEAN CORPUSCULAR HGB 33 pg (26-34) MEAN CORPUSCULAR HGB CONC 34 g/dL (31-37) RED CELL DISTRIBUTION WIDTH 12.8 % (11.6-14.8) PLATELET COUNT 249 K/uL (150-400) NEUTROPHIL % 73.0 % (50-75) LYMPH % 17.1 L % (25-40) MONO % 8.0 % (3-14) EOSINOPHIL % 1.5 % (0-4) BASOPHIL % 0.4 % (0-2) PT with INR: (MARISEL: 08/30/2016 11:00) ( [facility] 08/30/2016 12:00) Final results Test Result Flag Units (Reference) INR 2.1 H (0.8-1.2) Low Intensity Therapy: INR 1.5-2.0 PT range 18.5-23.1Mod.Intensity Therapy: INR 2.0-3.0 PT range 23.1-31.5High Intensity Therapy: INR 2.5-3.5 PT range 27.4-35.5High Intensity Therapy 2: INR 3.0-4.0 PT range 31.5-39.3 APTT 33 SECONDS (24-34) D-DIMER QUANTITATIVE 7.23 *H ug/mLFEU (0.27-0.52) CRITICAL RESULTS CALLEDCalled to REGAN PHILLIPS IN ED 08/30/16 1159Were 2 patient identifiers used? YWas the result read back? YThe primary value of this quantitative assay relates toits negative predictive value (i.e. exclusion) of pulmonaryembolism/deep vein thrombosis/DIC.Elevated levels of d-dimer may also occur with:, age, cancer, inflammation, liver disease,post-op, infection, hematoma, coronary disease, peripheralarteriopathy, bleeding disorders and thrombolytic treatment.Results should be correlated with other clinical andradiological data.Testing Methodology: Latex Immunoassay CHEM 13 PANEL: (MARISEL: 08/30/2016 11:00) ( MsgRcvd 08/30/2016 13:12) Final results Test Result Flag Units (Reference) GLUCOSE 119 H mg/dL (70-110) BUN 23 H mg/dL (7-18) CREATININE 0.9 mg/dL (0.6-1.3) Estimated GFR >60 mL/min Estimated GFR- >60 mL/min Note: Persistent reduction over 3 months in eGFR<60 mL/min/1.73 m2 defines CKD. Patients with eGFR values>=60 mL/min/1.73 m2 may also have CKD if evidence ofpersistent proteinuria. Additional information may be foundat www.[email or web address].org. SODIUM 137 mmol/L (136-145) POTASSIUM 4.0 mmol/L (3.5-5.1) CHLORIDE 101 mmol/L (98-107) CARBON DIOXIDE 27 mmol/L (21-32) CALCIUM 9.0 mg/dL (8.5-10.1) TOTAL PROTEIN 7.1 g/dL (6.4-8.2) ALBUMIN 3.3 g/dL (3.3-5.0) BILIRUBIN, TOTAL 0.5 mg/dL (0.0-1.0) ALKALINE PHOSPHATASE 76 U/L (46-116) AST (SGOT) 19 U/L (15-37) ALT (SGPT) 25 U/L (12-78) MAGNESIUM 1.7 L mg/dL (1.8-2.4) CPK 76 U/L (24-260) TROPONIN I 0.14 ng/mL (0.00-1.5) TROPONIN REFERENCE RANGE:<0.1 NEGATIVE0.1-1.5 INDETERMINANT>1.5 POSITIVE BNP: (MARISEL: 08/30/2016 11:00) ( MsgRcvd 08/30/2016 13:24) Final results Test Result Flag Units (Reference) B-TYPE NATRIURETIC PEPTIDE 21.5 pg/ml (5-100) . Pulse Oximetry: 08/30/2016 10:39 O2 saturation: 97%. (FIO2 - room air). Interpretation: normal. PROGRESS AND PROCEDURES Course of Care: 13:07 08/30/16. Discussed CTPA with Dr Patton - he wishes to proceed with study rather than VQ. 13:24 08/30/16. Dr Patton in the ED with pt now 13:43 08/30/16. Orthostatic vs are unremarkable 14:16 08/30/16. Still awaiting CT pulm angio results CTPA neg for PE, but does confirm some signs of dehydration. Pt offered admission (my recommendation to him), but, after discussion with Dr Patton and review of all tests, he elects to be discharged home. I have arranged for next day follow up. He (and his ) state that he will return for new or worsening symptoms or any concerns (and / or call 911). Discussed case with patient's primary care provider, (Abdi - several times; called at 14:37 informed of results). Reviewed test results. Agreed upon treatment plan. Health care provider will see patient in ED. Patient/family counseled. Old ED records reviewed. Transition orders written. Disposition: Observation in Acute Care. CLINICAL IMPRESSION Minor closed head injury. No loss of consciousness. (in setting of anticoagulation). No right cerebral hemorrhage. No left cerebral hemorrhage. No cerebellar hemorrhage. No brainstem hemorrhage. No concussion or skull fracture. Mild idiopathic hypotension. Mild dehydration Single contusion with soft tissue hematoma to the scalp. Abnormal tests: (indeterminate troponin I; elevated d-dimer). Acute sphenoidal sinusitis Mild chronic anemia associated with chronic disease. Mild hypomagnesemia. Fall on same level by tripping. Clinical picture does not suggest neck pain, concussion, subdural hematoma or epidural hematoma. Clinical picture does not suggest traumatic intracranial hemorrhage or subarachnoid hemorrhage. Prerenal azotemia (mild). INSTRUCTIONS Apply ice. (After a full discussion of the risks and benefits of admission versus discharge, you have elected to be discharged home. You understand that I cannot rule out other problems without further observation and monitoring. Hold your water pill tomorrow until you talk with Dr Patton). Warnings: GENERAL WARNINGS: Return or contact your physician immediately if your condition worsens or changes unexpectedly, if not improving as expected, or if other problems arise. Your Current Medications: STOP TAKING THE FOLLOWING MEDICATIONS: Hydrochlorothiazide Oral : 25 mg daily. Follow-up with: Frank Patton MD, [facility], , [facility] [place], [address] [place] [address] Follow up tomorrow. Call for the next available appointment. Reason for referral: Dr Patton states that he will work you in tomorrow. (Electronically signed by Krunal Ewing DO 08/30/2016 16:25)
--- NOTE | 2016-08-30 13:08 | ED NURSING NOTES ---
Clinical Report - [facility] [address] [place] [address] 08/30/2016 10:32 Patient: GUDELIA CHAN TRIAGE Triage time 10:39. Acuity: LEVEL 3. Chief Complaint: FALL. 10:39 08/30/16. 10:39 08/30/16. Alert. No acute distress. SEPSIS SCREEN: Sepsis Screen. Negative (no infection suspected/documented). TRISHA COMA SCORE: Trisha Coma Scale: 15- eyes open spontaneously (4); best verbal response- oriented x 4 (5); best motor response- obeys commands (6). --10:45 Richard Perez R.N. 10:39 08/30/16. BP: 92/61. HR: 60. RR: 14. O2 saturation: 97% on room air. Temp: 97.7 F (oral). Pain level now: 06/21. --10:45 Richard Perez R.N. Weight: 128.3 kg stated. Height/Length: 71 inches Per Patient. BMI: 39.5. --10:39 Richard Perez R.N. Medications Alrex Ophthalmic. Atorvastatin Calcium Oral 10 mg, daily. Combigan Ophthalmic. Enalapril Maleate Oral 20 mg, daily. Hydrochlorothiazide Oral 25 mg, daily. MetFORMIN HCl Oral (Tablet 500 mg), daily. Ranitidine HCl Oral 150 mg, daily. --10:42 Richard Perez R.N. Warfarin Sodium Oral 5 mg, daily. --10:43 Richard Perez R.N. The following entry was struck by Richard Perez R.N., 10:44 (08/30/16) Reason - other. <<CELESTINE ENTRY-- Etodolac Oral. --10:42 Richard Perez R.N. --END STRIKE>> The following entry was struck and corrected by Richard Perez R.N., 10:44 (08/30/16) Reason for correction - other(correction). <<STRICKEN ENTRY-- Ranitidine HCl Oral. --10:42 Richard Perez R.N. --END STRIKE>> The following entry was struck and corrected by Richard Perez R.N., 10:44 (08/30/16) Reason for correction - other(correction). <<STRICKEN ENTRY-- Atorvastatin Calcium Oral. --10:42 Richard Perez R.N. --END STRIKE>> The following entry was struck and corrected by Richard Perez R.N., 10:44 (08/30/16) Reason for correction - other(correction). <<STRICKEN ENTRY-- MetFORMIN HCl Oral. --10:42 Richard Perez R.N. --END STRIKE>> The following entry was struck and corrected by Richard Perez R.N., 10:43 (08/30/16) Reason for correction - other(correction). <<STRICKEN ENTRY-- Enalapril Maleate Oral. --10:42 Richard Perez R.N. --END STRIKE>> The following entry was struck and corrected by Richard Perez R.N., 10:43 (08/30/16) Reason for correction - other(correction). <<STRICKEN ENTRY-- Hydrochlorothiazide Oral. --10:42 Richard Perez R.N. --END STRIKE>>. Medication/allergy information source: the patient. --10:45 Richard Perez R.N. Allergies Aspirin. --10:44 Richard Perez R.N. History Arrived by EMS. Historian: patient. Primary physician (MICHAEL PATTON). 10:39 08/30/16. This occurred today. ( Pt fell at restaurant. Pt "tripped over his feet" striking his head on a table. Pt is on coumadin.). No loss of consciousness. No headache, neck pain or back pain. Trauma activation: Pre-hospital notification of patient arrival was not received. 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 PAST MEDICAL HX: Tetanus status: up-to-date. Immunizations: up-to-date. SOCIAL HX: Never smoker. No alcohol use or drug use. No infectious disease exposure. ABUSE ASSESSMENT: No report of abuse. FALL RISK ASSESSMENT: Fall risk assessment completed. No fall risk identified. NUTRITIONAL RISK ASSESSMENT: The nutritional risk assessment revealed no deficiencies. FUNCTIONAL ASSESSMENT: Functional assessment: no impairments noted. LEARNING NEEDS ASSESSMENT: The learning needs assessment revealed no barriers. SKIN INTEGRITY ASSESSMENT: Skin integrity risk assessment completed. No skin integrity risk identified. --10:45 Richard Perez R.N. PROBLEMS: Myofascial Strain. Abnormal Test. Pedal Edema. DVT - Deep Venous Thrombosis. --10:45 Richard Perez R.N. Fall. --10:47 Richard Perez R.N. ADDITIONAL SURGERIES: Appendectomy. Hemorrhoidectomy. Hip Surgery. Tonsillectomy. --10:45 Richard Perez R.N. Assessment 10:39 08/30/16. --10:45 Richard Perez R.N. Interventions 10:39 08/30/16. 10:39 08/30/16. ID and allergy band on patient. To treatment room. --10:45 Richard Perez R.N. PHYSICAL ASSESSMENT 10:46 08/30/16. To room via stretcher. GENERAL / NEURO / PSYCH: Alert. Oriented X 4. Appears in no acute distress. ( Hematoma noted to back of head). RESPIRATORY: Respirations not labored. CVS: Capillary refill less than 2 seconds. EXTREMITIES: Neuro-vascular status intact to the extremity. SKIN: Skin is warm and dry. --10:47 Richard Perez R.N. NURSING PROGRESS NOTES 10:47 08/30/16. Patient gowned. Reassurance given. Two patient identifiers checked. Call light placed in reach. Side rails up x 2. Bed placed in lowest position. Brakes of bed on. --10:47 Richard Perez R.N. 10:47 08/30/16. Patient ready for evaluation- chart flagged and notification provided. --10:47 Richard Perez R.N. 10:50 08/30/16. Monitoring of patient in place. Pulse oximeter applied. social worker school applied. NIBP monitor applied. --10:50 Richard Perez R.N. 10:50 08/30/16. Cardiac rhythm: normal sinus rhythm; (61). --10:50 Richard Perez R.N. 10:55 08/30/16. EKG time: (1055 AM). EKG was ordered, performed and shown to the ED physician. --10:55 Richard Perez R.N. 10:56 08/30/16. BP: 111/69. HR: 61. RR: 14. O2 saturation: 90% on room air. --10:57 Richard Perez R.N. 10:57 08/30/16. --10:57 Richard Perez R.N. 10:57 08/30/16. O2 saturation: 97%. O2 started via nasal cannula at 2 liters/minute. --10:57 Richard Perez R.N. 10:57 08/30/16. Cardiac rhythm: normal sinus rhythm. --10:57 Richard Perez R.N. 11:00 08/30/2016 Two (2) unsuccessful IV access attempts including the left forearm. Applied bandaid and manual pressure. --11:10 Brianda Terrazas R.N. 11:10 08/30/2016 Site #1 started via IV in the right forearm with an 20g angiocath, with aseptic technique and good blood return; one attempt. Blood drawn: rainbow set. Labeled in the presence of the patient and sent to the lab. Saline lock flushed with 10 mL saline. --11:10 Richard Perez R.N. 11:10 08/30/2016 Started bag #1 1000 mL IV Fluids IV NS (Saline); at 1000 mL/hr over 1 hour(s) via site #1. Allergies verified and confirmed 5 rights. IV patency established. IV site checked: no pain, redness, or swelling. IV flushed thoroughly pre- and post-medication administration. Completed per protocol. --11:10 Richard Perez R.N. 11:13 08/30/16. Point of care testing: performed by [employer]. Glucose: 123. --11:13 Richard Perez R.N. 11:24 08/30/16. Patient transported to radiology by stretcher with tech. --11:24 Richard Perez R.N. 11:47 08/30/16. Patient returned from radiology and CT by stretcher with tech. --11:47 Jenna Carlos R.N. Patient returned from radiology and CT with tech. --11:47 Michela Beckett, Tech1 Critical value relayed to ED by alexandria Hernandez. Critical value received by REGAN West. D dimer 7.23. Critical value read back. Verified lab result and patient ID. ED physician notifed of critical value. --12:02 Jenna Carlos R.N. Patient ID band checked for patient name and birthdate: patient confirmed. Instructions provided to collect clean catch urine and patient verbalized understanding. Clean catch urine collected with return of yellow-colored urine; sample sent to lab for urinalysis and culture. Specimen labeled in the presence of the patient. --12:03 Michela Beckett, Tech1 late entry -11:58. Patient returned from radiology by stretcher with tech. --12:04 Richard Perez R.N. 12:05 08/30/16. BP: 104/60 (regular adult cuff) taken on the right arm, while lying. HR: 62 (regular). RR: 16. O2 saturation: 97% on room air. --12:05 Richard Perez R.N. 12:05 08/30/16. --12:05 Richard Perez R.N. 12:06 08/30/16. Cardiac rhythm: normal sinus rhythm. --12:06 Richard Perez R.N. 12:05 08/30/16. BP: 109/75 (regular adult cuff) taken on the right arm, while sitting. HR: 65 (regular). O2 saturation: 96% on room air. --12:06 Richard Perez R.N. 12:07 08/30/16. Cardiac rhythm: normal sinus rhythm. --12:07 Richard Perez R.N. 12:06 08/30/16. BP: 114/83 taken while standing. HR: 74 (regular). RR: 16 (regular). O2 saturation: 97% on room air. --12:07 Richard Perez R.N. 12:08/30/16. Patient and family informed about reason for wait and about plan of care. --12:15 Richard Perez R.N. 12:08/30/16. ED physician notified about patient's status. Notified about vital signs. --12:15 Richard Perez R.N. 12:08/30/16. Cardiac rhythm: normal sinus rhythm. --12:25 Richard Perez R.N. 12:08/30/16. BP: 101/62. HR: 68. RR: 12. O2 saturation: 94% on room air. --12:25 Richard Perez R.N. 13:08/30/16. BP: 103/62. HR: 59. RR: 14. O2 saturation: 97% on room air. --13:04 Richard Perez R.N. 13:08/30/16. --13:04 Richard Perez R.N. 13:08/30/16. Cardiac rhythm: normal sinus rhythm; (60). --13:05 Richard Perez R.N. 13:08/30/16. ( Pt to be admitted). --13:05 Richard Perez R.N. 13:08/30/16. Patient and family informed about reason for wait and about plan of care. --13:05 Richard Perez R.N. 13:08/30/16. Patient waiting for admit bed. --13:05 Richard Perez R.N. 13:15 08/30/16. ( Gave patient water). --13:15 Richard Perez R.N. 13:16 08/30/16. --13:16 Richard Perez R.N. 13:08/30/16. BP: 105/63. HR: 56. RR: 16. O2 saturation: 97% on room air. --13:16 Richard Perez R.N. 13:16 08/30/16. Cardiac rhythm: sinus bradycardia. --13:16 Richard Perez R.N. 13:25 08/30/16. ( Dr. Patton at bedside). --13:25 Ricahrd Perez R.N. 13:27 08/30/16. Patient transported to radiology by stretcher with tech. --13:27 Richard Perez R.N. 13:47 08/30/16. Patient returned from CT by stretcher with tech. --13:47 Hillary Rosen R.N. 14:30 08/30/16. BP: 102/66. HR: 64. RR: 14. O2 saturation: 95% on room air. --14:31 Richard Perez R.N. 14:11 08/30/2016 IV Fluids IV NS Discontinued: bag #1 infused. Total amount infused: 1000 mL. --14:36 Richard Perez R.N. 14:31 08/30/16. --14:31 Richard Perez R.N. 14:31 08/30/16. Cardiac rhythm: normal sinus rhythm. --14:31 Richard Perez R.N. DISPOSITION / DISCHARGE 14:50 08/30/2016 Site #1 removed upon discharge. Catheter intact. --14:51 Richard Perez R.N. 14:51 08/30/16. Cardiac rhythm: normal sinus rhythm. Condition at departure: improved. The goals identified in the patient's plan of care were met. No learning barriers present. Discharge instructions provided and reviewed with the patient and spouse. Reviewed warnings. Reviewed medication(s). Treatments reviewed. Patient and spouse verbalized understanding. Written instructions provided in Chinese. The patient was discharged by the physician. He was discharged home and accompanied by family. He left the Emergency Department in a wheelchair and via private vehicle. Family member driving. FALL RISK ASSESSMENT: Fall risk assessment completed. No fall risk identified. --14:51 Richard Perez R.N. 14:50 08/30/16. BP: 107/53. HR: 62. RR: 18. O2 saturation: 97% on room air. Temp: 97.9 F (oral). Pain level now: 0/10. --14:51 Richard Perez R.N. 14:51 08/30/16. Departure time: 14:51. --14:51 Richard Perez R.N. Locked/Released at 08/30/2016 15:55 by Richard Perez R.N.
--- NOTE | 2016-08-30 13:08 | ED ORDER SUMMARY ---
..... 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 per protocol) (10:48 JBoardley R.N.) PT with INR Urgent (10:48 08/30/2016 JBoardley R.N. per protocol) (Ack 10:49 KHoerner) (11:15 JBoardley R.N.) Pulse oximeter (10:48 08/30/2016 JBoardley R.N. per protocol) (10:48 JBoardley R.N.) PTT Urgent (10:49 08/30/2016 JBoardley R.N. per protocol) (Ack 10:50 KHoerner) (11:15 JBoardley R.N.) EKG - ER Stat (10:49 08/30/2016 JBoardley R.N. per protocol) (10:50 LNations ER Tech1) (Ack 10:50 KHoerner) (10:55 JBoardley R.N.) Vitals (10:49 08/30/2016 JBoardley R.N. per protocol) (10:49 JBoardley R.N.) Chest 2V Urgent (11:02 08/30/2016 PHutchinson DO) (Ack 11:04 KHoerner) (11:47 MWinterer R.N.) CT Head wo Cont Urgent (11:02 08/30/2016 PHutchinson DO) (Ack 11:04 KHoerner) (11:47 MWinterer R.N.) UA-Culture if indicated Urgent (11:03 08/30/2016 PHutchinson DO) (Ack 11:04 KHoerner) (12:01 JBoardley R.N.) BNP Urgent (11:03 08/30/2016 PHutchinson DO) (Ack 11:04 KHoerner) (11:15 JBoardley R.N.) D-Dimer Urgent (11:03 08/30/2016 [facility]) (Ack 11:04 KHoerner) (11:15 JBoardley R.N.) POC Glucose (11:12 08/30/2016 JBoardley R.N. per protocol) (11:12 JBoardley R.N.) Vitals - Orthostatic (12:08 08/30/2016 JBoardley R.N. per protocol) (12:08 JBoardley R.N.) Cardiac Panel Stat (12:36 08/30/2016 [facility]) (Ack 12:36 KHoerner) (13:03 JBoardley R.N.) CTA Thorax w Cont (No) (GFR > 60) Urgent (13:06 08/30/2016 [facility]) (Ack 13:08 KHoerner) (13:49 KHoerner) MEDICATION ORDERS: IV FLUIDS: IV Saline Lock (10:48 08/30/2016 JBoardley R.N. per protocol) (Ack 10:50 JBoardley R.N.) (11:15 JBoardley R.N.) IV NS : initial bolus 500 mL (1000 mL/hr), then 500 mL/hr for X2 (NOW) (11:01 08/30/2016 [facility]) (11:10 JBoardley R.N.) ORDER SHEET NOTES: [Electronically signed by Richard Perez R.N. (15:55 08/30/2016)] [Electronically signed by Krunal Ewing DO (16:25 08/30/2016)] [Electronically locked/signed by Richard Perez R.N. (15:55 08/30/2016)]
--- NOTE | 2016-08-30 14:35 | DIAGNOSTIC IMAGING REPORT ---
PROCEDURE: CTA THORAX WITH CONTRAST INDICATION: FALL, DVT, HYPOXEMIA TECHNIQUE: 100 ml of Isovue 370 was injected intravenously and axial images were obtained of the chest with 3D sagittal and coronal MIP reconstructions. COMPARISON: None. FINDINGS: There is slight respiratory motion and low lung volumes crowding the pulmonary vasculature, both of which slightly decreased the quality of the study. Given these limitations, no convincing findings for pulmonary embolus. There is moderate dilatation of the right main pulmonary artery which measures about 3.1 cm in diameter. The left main pulmonary artery is about 3.0 cm. Pulmonary outflow tract and aortic caliber is are normal. There is slight right-sided cardiac enlargement. No definite bowing of the intraventricular septum. No pericardial effusion. Great vessels demonstrate a normal branching pattern. Mild right peribronchial soft tissue thickening without focal bulky adenopathy, nonspecific. No mediastinal masses. The esophagus is normal in caliber without hiatal hernia. The thyroid gland is normal. Moderate bilateral lower lobe interstitial thickening. The airway is patent and branches normally. No pleural effusions or pneumothorax. Osseous structures show degenerative changes. The images obtained of the upper abdomen demonstrate decreased caliber of the inferior vena cava, 4 cm debris filled duodenal diverticulum, and mild amount of retained stool. IMPRESSION: 1. Slightly limited study, but no evidence of large central pulmonary embolus. 2. Findings of mild pulmonary artery hypertension, correlate clinically. 3. Low lung volumes with mild interstitial thickening in the lower lobes bilaterally, possibly early interstitial edema given mild cardiomegaly. 4. Decreased caliber of the inferior vena cava suggestive of decreased overall fluid status. 5. Discussed with Dr. Ewing in the emergency room.
--- NOTE | 2016-08-30 16:25 | ED MED RECONCILIATION SUMMARY ---
Patient: GUDELIA CHAN Medication Reconciliation Report [facility] VisitID: [id number] [address] [place] [address] 75y, M Registration Date/Time: 08/30/2016 Weight: 128.3 kg Height/Length: 71 in. BMI: 39.5 ALLERGIES: Aspirin The patient's Home Medications are listed below: STOP TAKING THE FOLLOWING MEDICATIONS: Hydrochlorothiazide Oral 25 mg, daily THE FOLLOWING MEDICATIONS NEED TO BE RECONCILED: Alrex Ophthalmic Atorvastatin Calcium Oral 10 mg, daily Combigan Ophthalmic Enalapril Maleate Oral 20 mg, daily MetFORMIN HCl Oral (500 mg), daily Ranitidine HCl Oral 150 mg, daily Warfarin Sodium Oral 5 mg, daily The source(s) of the original Home Medication information: patient The following Medications were given to the patient in the Emergency Department: IV NS IV Fluids bolus 0, then 1000 mL/hr, administered: 08/30/2016 11:10:00 AM The following Medications were prescribed to the patient: None.
--- NOTE | 2016-08-30 16:25 | ED MAR SUMMARY ---
..... Medication Administration Record [facility] [address] [place] [address] Patient: GUDELIA CHAN Visit ID: [id number] 75y, M Weight: 128.3 kg Height/Length: 71 in BMI: 39.5 ALLERGIES: Aspirin Start 11:10 08/30/2016 Richard Perez R.N., Stop 14:11 08/30/2016 Richard Perez R.N. Medication Administered: IV NS (SALINE), Dose: IV Fluids over 1 hour(s), Rate: 1000 mL/hr, Dispensed: 1000 mL bag, Site: #1 right forearm. Medication Ordered: IV NS : initial bolus 500 mL (1000 mL/hr), then 500 mL/hr for X2 (NOW).
--- NOTE | 2016-08-30 16:25 | ED MED RECONCILIATION SUMMARY ---
Patient: GUDELIA CHAN Medication Reconciliation Report [facility] VisitID: [id number] [address] [place] [address] 75y, M Registration Date/Time: 08/30/2016 Weight: 128.3 kg Height/Length: 71 in. BMI: 39.5 ALLERGIES: Aspirin The patient's Home Medications are listed below: STOP TAKING THE FOLLOWING MEDICATIONS: Hydrochlorothiazide Oral 25 mg, daily THE FOLLOWING MEDICATIONS NEED TO BE RECONCILED: Alrex Ophthalmic Atorvastatin Calcium Oral 10 mg, daily Combigan Ophthalmic Enalapril Maleate Oral 20 mg, daily MetFORMIN HCl Oral (500 mg), daily Ranitidine HCl Oral 150 mg, daily Warfarin Sodium Oral 5 mg, daily The source(s) of the original Home Medication information: patient The following Medications were given to the patient in the Emergency Department: IV NS IV Fluids bolus 0, then 1000 mL/hr, administered: 08/30/2016 11:10:00 AM The following Medications were prescribed to the patient: None.
--- NOTE | 2016-08-30 16:25 | ED MAR SUMMARY ---
..... Medication Administration Record [facility] [address] [place] [address] Patient: GUDELIA CHAN Visit ID: [id number] 75y, M Weight: 128.3 kg Height/Length: 71 in BMI: 39.5 ALLERGIES: Aspirin Start 11:10 08/30/2016 Richard Perez R.N., Stop 14:11 08/30/2016 Richard Perez R.N. Medication Administered: IV NS (SALINE), Dose: IV Fluids over 1 hour(s), Rate: 1000 mL/hr, Dispensed: 1000 mL bag, Site: #1 right forearm. Medication Ordered: IV NS : initial bolus 500 mL (1000 mL/hr), then 500 mL/hr for X2 (NOW).
--- NOTE | 2016-08-30 16:25 | ED DISCHARGE INSTRUCTIONS ---
Patient: GUDELIA CHAN General Instructions [facility] VisitID: [id number] [address] [place] [address] 75y, M Registration Date/Time: 08/30/2016 Minor closed head injury. No loss of consciousness. (in setting of anticoagulation). No right cerebral hemorrhage. No left cerebral hemorrhage. No cerebellar hemorrhage. No brainstem hemorrhage. No concussion or skull fracture. Mild idiopathic hypotension. Mild dehydration Single contusion with soft tissue hematoma to the scalp. Abnormal tests: (indeterminate troponin I; elevated d-dimer). Acute sphenoidal sinusitis Mild chronic anemia associated with chronic disease. Mild hypomagnesemia. Fall on same level by tripping. Prerenal azotemia (mild). INSTRUCTIONS Apply ice. (After a full discussion of the risks and benefits of admission versus discharge, you have elected to be discharged home. You understand that I cannot rule out other problems without further observation and monitoring. Hold your water pill tomorrow until you talk with Dr Patton). Warnings: GENERAL WARNINGS: Return or contact your physician immediately if your condition worsens or changes unexpectedly, if not improving as expected, or if other problems arise. Your Current Medications: STOP TAKING THE FOLLOWING MEDICATIONS: Hydrochlorothiazide Oral : 25 mg daily. Follow-up with: Frank Patton MD, [facility], , [facility], [address] [place] [address] Follow up tomorrow. Call for the next available appointment. Reason for referral: Dr Patton states that he will work you in tomorrow. ADDITIONAL INFORMATION Fall, Uncertain Cause You have had a fall today. but the cause of your fall is not certain. Falls can occur due to slipping, tripping or losing your balance. A fall can also occur from a fainting spell or seizure. Because the cause of your fall today is not certain, it is possible that a fainting spell or seizure was the cause. This means that it could happen again, without warning. If you fall again, without a cause, then you should return to this facility promptly to have further tests. Otherwise, follow up with your doctor as explained below. Home Care: 1) Rest today and resume your normal activities as soon as you are feeling back to normal. It is best to remain with someone who can check on you for the next 24 hours to watch for another episode of falling. 2) If you were injured during the fall, follow the advice from your doctor regarding care of your injury. 3) If you become light-headed or dizzy, lie down immediately or sit and lean forward with your head down. 4) As a precaution, do not drive a car or operate dangerous equipment, do not take a bath alone (use a shower instead) and do not swim alone until you see your doctor. A condition causing fainting or seizures must be ruled out before resuming these activities. 5)You may use acetaminophen (Tylenol) or ibuprofen (Motrin, Advil) to control pain, unless another pain medicine was prescribed. [ NOTE : If you have chronic liver or kidney disease or ever had a stomach ulcer or GI bleeding, talk with your doctor before using these medicines.] 6) Keep your appointments for any further testing that may have been scheduled for you. Follow Up: Unless, given other advice, call your doctor on the next office day to advise of your fall and to schedule an appointment. Get Prompt Medical Attention if any of the following occur: -- Another unexplained fall -- Dizziness, fainting or seizure -- Severe headache -- Chest pain or shortness of breath -- Palpitations (very rapid or very slow or irregular heart beat) -- Blood in vomit, stools (black or red color) -- Weakness of an arm or leg or one side of the face -- Difficulty with speech or vision Scalp Contusion [W/ Wake-Up] A scalp contusion is a bruise with swelling. Sometimes there is bleeding under the skin. The swelling should start to go down within two days. Although there is no sign of a serious injury at this time, symptoms may show up later. These could be a sign of a more serious problem (bruising or bleeding in the brain). Home Care: During the next 24 hours someone must stay with you. This person should WAKE YOU EVERY TWO HOURS to check for the signs below. If you have swelling of the face or scalp, apply an ice pack (ice cubes in a plastic bag, wrapped in a towel). Do this for 20 minutes every 1-2 hours until the swelling starts to go down. You may use acetaminophen (Tylenol) or ibuprofen (Motrin, Advil) to control pain, unless another pain medicine was prescribed. [ NOTE : If you have chronic liver or kidney disease or ever had a stomach ulcer or GI bleeding, talk with your doctor before using these medicines.] For the next 24 hours: Do not take alcohol, sedatives or medicines that make you sleepy. Do not drive or operate machinery. Avoid strenuous activities. No lifting or straining. If you have had any symptoms of a concussion today (nausea, vomiting, dizziness, confusion, headache, memory loss or if you were knocked out), do not return to sports or any activity that could result in another head injury until all symptoms are gone and you have been cleared by your doctor. A second head injury before fully recovering from the first one can lead to serious brain injury. Follow Up with your doctor if symptoms are not improving after 24 hours, or as directed. [NOTE: Any X-rays or CT scans taken will be reviewed by a radiologist. You will be notified of any new findings that may affect your care.] Get Prompt Medical Attention if any of the following occur: Repeated vomiting Severe or worsening headache or dizziness Unusual drowsiness, or unable to awaken as usual Confusion or change in behavior or speech, memory loss, blurred vision Convulsion (seizure) Increasing scalp or face swelling Redness, warmth or pus from the swollen area Fluid drainage or bleeding from the nose or ears Fever of 100.4F(38C) or higher, or as directed by your healthcare provider Hypotension (All Causes) The normal blood pressure range is between 90/60 and 140/80. Low blood pressure (also calledhypotension) is a decrease in blood pressure from what is normal for you. Low blood pressure can cause symptoms of dizziness, lightheadedness or fainting. Some of the causes for low blood pressure: Certain medicines, including: High blood pressure pills Diuretics (water pills) Some heart medicines Some antidepressants Pain, anxiety, sedative, and sleeping medicines Dehydration, severe infection, fever Blood loss (for example, bleeding from the stomach or intestines) Congestive heart failure (CHF) Change in heart rate or rhythm (arrhythmia) Orthostatic hypotension(from a sudden change in body position from lying down to standing) Alcohol or drug intoxication Altered reflexes of the blood vessels and heart responsible for keeping the blood pressure normal with changes of position Treatment will depend on the cause of your low blood pressure. Home Care: Rest until symptoms improve. Follow the treatment plan described by your doctor. Follow Up with your doctor or as advised by our staff. Get Prompt Medical Attention if any of the following occur: Dizziness, lightheadedness, or fainting Black or red color in your stools or vomit Shortness of breath or difficulty breathing Chest, shoulder, arm, neck or upper back pain Abdominal pain, persistent diarrhea or vomiting Inability to eat or drink Fever of 100.4F (38C) or higher, or as directed by your healthcare provider Urinary burning or foul-smelling urine Sinusitis [No Abx Tx] The sinuses are air-filled spaces within the bones of the face. They connect to the inside of the nose. Sinusitis is an inflammation of the tissue lining the sinus cavity. Sinus inflammation can occur during a cold or hay-fever (allergies to pollens and other particles in the air) and cause symptoms of sinus congestion and fullness and perhaps a low-grade fever. This does not require antibiotic treatment. Home Care: Drink plenty of water, hot tea, and other liquids to stay well hydrated. This thins the mucus and promotes sinus drainage. Apply heat to the painful areas of the face. Use a towel soaked in hot water. Or, boring mill set up operator the shower and direct the hot spray onto your face. This is a good way to inhale warm water vapor and get heat on your face at the same time. (Cover your mouth and nose with your hands so you can still breathe as you do this.) Use a vaporizer with products such as [employer] VapoRub (contains menthol) at night. Suck on peppermint, menthol or eucalyptus hard candies during the day. An expectorant containing guaifenesin (such as Robitussin), helps to thin the mucus and promote drainage from the sinuses. Ugsb-iac-nicxzgg decongestants may be used unless a similar medicine was prescribed. Nasal sprays work the fastest. Use one that contains phenylephrine (Remberto-synephrine, Sinex and others) or oxymetazoline (Afrin). First blow the nose gently to remove mucus, then apply the drops. Do not use these medicines more often than directed on the label or for more than three days or symptoms may worsen. You may also use tablets containing pseudoephedrine (Sudafed). Many sinus remedies combine ingredients, which may increase side effects. Read the labels or ask the pharmacist for help. NOTE: Persons with high blood pressure should not use decongestants. They can raise blood pressure. Antihistamines are useful if allergies are a cause of your sinusitis. The mildest one is chlorpheniramine (available without a prescription). The dose for adults is 8-12mg three times a day. [NOTE: Do not use chlorpheniramine if you have glaucoma or if you are a man with trouble urinating due to an enlarged prostate.] Claritin (loratidine) is an antihistamine that causes less drowsiness and is a good alternative for daytime use. When allergies are the cause for sinusitis, a saline nasal rinse may give relief. Saline nasal rinse reduces swelling and clears excess mucus. This allows sinuses to drain. Pre-packaged kits are available at most drug stores. These contain pre-mixed salt packets and an irrigation device. You may use acetaminophen (Tylenol) or ibuprofen (Motrin, Advil) to control pain, unless another pain medicine was prescribed. [ NOTE: If you have chronic liver or kidney disease or ever had a stomach ulcer, talk with your doctor before using these medicines.] (Aspirin should never be used in anyone under 18 years of age who is ill with a fever. It may cause severe liver damage.) Follow Up with your doctor or this facility in one week or as instructed by our staff if not improving. Get Prompt Medical Attention if any of the following occur: Green or yellow drainage from the nose or into the back of the throat (post-nasal drip) Worsening sinus pain or headache Stiff neck Unusual drowsiness, confusion or not acting like your normal self Swelling of the forehead or eyelids Vision problems including blurred or double vision Fever of 100.4F (38C) or higher, or as directed by your healthcare provider Seizure Dehydration (Adult) Dehydration occurs when your body loses too much fluid. This may be the result of vomiting a lot or from diarrhea,sweating a lot, or a high fever. It may also happen if you dont drink enough fluid when youre sick. Misuse of diuretics (water pills) can also be a cause. Symptoms include thirst and feeling dizzy, weak, fatigued, or very drowsy. The diet described below is usually enough to treat most cases. Sometimes you may needmedicine. Home Care Follow these guidelines for home care: Drink at least 12 8-ounce glasses of fluid every day to overcome the dehydration. Fluid may include water; orange juice; lemonade; apple, grape, and cranberry juice; clear fruit drinks; electrolyte replacement and sports drinks; and teas and coffee without caffeine. If you have been diagnosed with a kidney disease, ask your doctor how much and what types of fluids you should drink to prevent dehydration. If you have kidney disease, drinking too much fluid can cause it build up in the your body and be dangerous to your health. If you have fever, muscle aching, or headache from a viral syndrome, you may useacetaminophen or ibuprofen, unless another medicine was prescribed for this.If you have chronic liver or kidney disease or ever had a stomach ulcer or GI bleeding, talk with your doctor before using these medicines. Don't take aspirin if you are younger than 18 and are ill with a fever.Aspirin raises the chance forsevere liver injury. Follow-up care Follow up with your health care provider if you don't get better in the next 24 to 48 hours. When to seek medical care Get prompt medical attention if any of theseoccur: Continued vomiting (cant keep liquids down) Frequent diarrhea (more than 5 times a day); blood (red or black color) or mucus in diarrhea Blood in vomit or stool Swollen abdomen or increasing abdominal pain Weakness, dizziness, or fainting Unusually drowsy or confused Reduced urine output or extreme thirst Fever of 100.4 F (38 C) oral or higher that does not get better with fever medication You have been given the following additional information: Fall, Uncertain Cause Scalp Contusion With Wake Up Hypotension, All Causes Sinusitis, No Abx Dehydration (Adult) (Electronically signed by Krunal Ewing DO 08/30/2016 16:25)
== END 2016-08-30 14:51 | disposition home or self-care (01) ==
LOC: ED SRH 10:31 → TRANS SRH 12:38 → ED SRH 14:51
DX: S09.8XXA Other specified injuries of head, initial encounter (principal); S00.03XA Contusion of scalp, initial encounter; I95.0 Idiopathic hypotension; E86.0 Dehydration; J01.30 Acute sphenoidal sinusitis, unspecified; W01.0XXA Fall on same level from slipping, tripping and stumbling without subsequent striking against object, initial encounter; Y92.511 Restaurant or cafe as the place of occurrence of the external cause; D50.0 Iron deficiency anemia secondary to blood loss (chronic); Z79.01 Long term (current) use of anticoagulants; E83.42 Hypomagnesemia
CPT/HCPCS: 90004; 90100; 90616; 91320; 91556; 92610; 92720; 94001; 94060; 95059

== ENCOUNTER 2016-09-02 11:01 | Outpatient (CLI) | payer OTHER | END 2016-09-02 23:00 | disposition home or self-care (01) | LOC: RT SRH 11:01 | DX: R00.1 Bradycardia, unspecified (principal) ==